=== PATIENT | male | born 1930 | race Caucasian/White ===

== ENCOUNTER 2017-08-20 17:54 | Emergency (ER) | payer MEDICARE, MEDICAID ==
[~2017-08-20] VITALS: Ht 170.2 cm; Wt 112.9 kg
--- NOTE | 2017-08-20 18:35 | NUR ---
Patient discharged to home in stable conditon. Written and verbal after care instructions given. Patient verbalizes understanding of instructions. Ambulated from ER. All belongings with patient. catheter repositioned per ER MD instruction, flowing without difficulty at this time.
[2017-08-20 18:36] VITALS: BP 118/78
== END 2017-08-20 18:38 | disposition home or self-care (01) ==
LOC: ER 17:58
DX: R33.9 Retention of urine, unspecified (principal); I11.0 Hypertensive heart disease with heart failure; I50.9 Heart failure, unspecified; Z95.0 Presence of cardiac pacemaker; Z91.010 Allergy to peanuts
CPT/HCPCS: A4663

== ENCOUNTER 2017-09-17 07:55 | Emergency (ER) | payer MEDICARE, MEDICAID ==
[~2017-09-17] VITALS: Ht 170.2 cm; Wt 108.9 kg
[2017-09-17] MEDS ORDERED: LIDOCAINE 2% (UROJET) 10 ML JELLY MM ONE ×2 (08:15→08:18)
--- NOTE | 2017-09-17 08:20 | NUR ---
Existing f/c d/c without complications, new f/c 16fr. inserted without any complications as ordered by Dr. Rocha.
--- NOTE | 2017-09-17 08:29 | NUR ---
1600ML OF BLOODY URINE WITH CLOTS OUT AFTER FOWLEY CATH REPLACEMENT. PT STAED HE FELT MUCH RELEIF.
[2017-09-17 08:32] LABS: *BILIRUBIN,URIN NEGATIVE (NEGATIVE); *BLOOD, URINE 3+ (NEGATIVE); *CLARITY,URINE CLEAR (CLEAR); *COLOR,URINE YELLOW (YELLOW); *KETONES,URINE NEGATIVE (NEGATIVE); *PROTEIN,URINE 2+ (NEGATIVE); *UROBILINOGEN,URINE 0.2 E.U./dl (NORMAL); LEUKOCYTE ESTERASE ,URINE 3+ (NEGATIVE); NITRITE, URINE NEGATIVE (NEGATIVE); PH,URINE 7.5 (5.0-8.0); UGLUCOSE NEGATIVE (NEGATIVE)
[2017-09-17 08:52] LABS: BACTERIA,URINE MODERATE /HPF (NONE SEEN); RBC,URINE TNTC /HPF (0-3); SQUAMOUS EPITHELIAL CELL,UR FEW /HPF (NONE SEEN); WBC,URINE 20-50 /HPF (0-3)
--- NOTE | 2017-09-17 08:54 | NUR ---
spoke with pt's urologist (on-call for ) via telephone.
[2017-09-17] MEDS ORDERED: LEVOFLOXACIN 500 MG TABLET PO ONE (09:15)
[2017-09-17] MEDS ORDERED: LEVOFLOXACIN 500 MG TABLET ONE (09:25)
--- NOTE | 2017-09-17 09:39 | NUR ---
BKLADDER WAS IRRAGATED WITH 0.9 NS IRRAGATION THROUGH JOSIE DAMON, CLEARED AFTER 1L IRRAGHATION, NO CLOTTS SEEN, LEG BAG PLCAED, PT REC'D LEVAQUIN PO, THEN D/C'D HOME, ACI/RX X1 GIVEN, PT AMBULATED WITH WALKER W/O PROBLEMS, PT'S SON PRESENT AND IS TO DRIVE. DR ROGERS SPOKE TO PT'S UROLOGIST AND SET UP AN APPT.
[2017-09-17 09:53] VITALS: BP 135/71
[2017-09-17] MEDS ORDERED: FURO-152 PO (18:11)
[2017-09-17] MEDS ORDERED: FOLI1TAB16 PO (18:11)
[2017-09-17] MEDS ORDERED: HYDR-4076 PO (18:11)
[2017-09-17] MEDS ORDERED: DOCU100C36 PO (18:11)
[2017-09-17] MEDS ORDERED: METO-357 PO (18:11)
[2017-09-17] MEDS ORDERED: LISI-603 PO (18:11)
[2017-09-17] MEDS ORDERED: IPRA3AMP23 IH (18:11)
[2017-09-17] MEDS ORDERED: RIVA10TA PO (18:11)
[2017-09-17] MEDS ORDERED: ATOR20TA PO (18:11)
[2017-09-17] MEDS ORDERED: PANT40TA4 PO (18:11)
[2017-09-17] MEDS ORDERED: COLC0.6C3 PO (18:11)
[2017-09-17] MEDS ORDERED: METF500T6 PO (18:11)
[2017-09-17] MEDS ORDERED: FLUT16SP NS (18:11)
[2017-09-17] MEDS ORDERED: ALLO100T PO (18:11)
[2017-09-17] MEDS ORDERED: DOXA4TAB3 PO (18:11)
[2017-09-17] MEDS ORDERED: POLY17PO4 PO (18:11)
[2017-09-17] MEDS ORDERED: ASPI81TA31 PO (18:11)
[2017-09-17] MEDS ORDERED: POTA10TA15 PO (18:11)
[2017-09-17] MEDS ORDERED: TAMS-3 PO (18:11)
[2017-09-17] MEDS ORDERED: FINA5TAB11 PO (18:11)
[2017-09-17] MEDS ORDERED: ACET-2154 PO (18:11)
[2017-09-17] MEDS ORDERED: CYAN10009 PO (18:11)
[2017-09-18] MEDS ORDERED: CYAN-10 IM (14:03)
== END 2017-09-17 09:54 | disposition home or self-care (01) ==
LOC: ER 07:55
DX: R33.9 Retention of urine, unspecified (principal); R31.9 Hematuria, unspecified; I11.0 Hypertensive heart disease with heart failure; I50.9 Heart failure, unspecified; Z95.0 Presence of cardiac pacemaker; Z91.010 Allergy to peanuts
CPT/HCPCS: 87077; 87086; A4217; A4663

== ENCOUNTER 2017-09-17 17:06 | Inpatient (IN) | payer MEDICARE, MEDICAID ==
[~2017-09-17] VITALS: Ht 170.2 cm; Wt 109.5 kg
--- NOTE | 2017-09-17 02:00 | NUR ---
Nursing Note: Pt appears to be restless. Note to have gila red blood in continuous irrigation. Attempted to flush Rios. Noted to get clogged once again. Pt urine noted with large clots throughout out. Pt noted with order for stat H and H. to infuse 1 unit packed rbc if hgb less than 8. Pt continues to have gila hematuria. Noted with complaints of bladder pain. Morphine administered as order and effective. Pt no longer restless. Pt removed cpap machine and now on O2 at 2lpm. Bed in low and locked position. Addendum: 09/18/17 at 0431 by HANNA FELTON RN Omitt note
[2017-09-17] MEDS ORDERED: IPRA3AMP23 IH (18:11)
[2017-09-17] MEDS ORDERED: METO-357 PO (18:11)
[2017-09-17] MEDS ORDERED: FINA5TAB11 PO (18:11)
[2017-09-17] MEDS ORDERED: METF500T6 PO (18:11)
[2017-09-17] MEDS ORDERED: ATOR20TA PO (18:11)
[2017-09-17] MEDS ORDERED: ACET-2154 PO (18:11)
[2017-09-17] MEDS ORDERED: DOXA4TAB3 PO (18:11)
[2017-09-17] MEDS ORDERED: FOLI1TAB16 PO (18:11)
[2017-09-17] MEDS ORDERED: FURO-152 PO (18:11)
[2017-09-17] MEDS ORDERED: CYAN10009 PO (18:11)
[2017-09-17] MEDS ORDERED: COLC0.6C3 PO (18:11)
[2017-09-17] MEDS ORDERED: FLUT16SP NS (18:11)
[2017-09-17] MEDS ORDERED: HYDR-4076 PO (18:11)
[2017-09-17] MEDS ORDERED: PANT40TA4 PO (18:11)
[2017-09-17] MEDS ORDERED: LISI-603 PO (18:11)
[2017-09-17] MEDS ORDERED: POLY17PO4 PO (18:11)
[2017-09-17] MEDS ORDERED: POTA10TA15 PO (18:11)
[2017-09-17] MEDS ORDERED: ASPI81TA31 PO (18:11)
[2017-09-17] MEDS ORDERED: TAMS-3 PO (18:11)
[2017-09-17] MEDS ORDERED: ALLO100T PO (18:11)
[2017-09-17] MEDS ORDERED: DOCU100C36 PO (18:11)
[2017-09-17] MEDS ORDERED: RIVA10TA PO (18:11)
[2017-09-17] MEDS ORDERED: LIDOCAINE 2% (UROJET) 10 ML JELLY MM ONE ×2 (18:15→18:25)
--- NOTE | 2017-09-17 18:27 | NUR ---
Call placed to Dr. Shelley (Patient's own UROLOGIST), message left for return call.
--- NOTE | 2017-09-17 18:31 | NUR ---
FAUSTO speaking with Dr. Cates.
--- NOTE | 2017-09-17 19:20 | NUR ---
iv placed, dr sanders oncall urologist was called at approx 1840, has not called back, 18f 3way fowley cath placed, 200ml of bloody urine and large clot out, bladder irragation in process. mrsa kaleb ordered and sent, sbar report to larisa griffin
--- NOTE | 2017-09-17 19:39 | NUR ---
Dr Rocha spoke with Dr Dewey for admission
--- NOTE | 2017-09-17 19:42 | NUR ---
Dr Rocha speaking with Dr Tejeda urology consult
[2017-09-17 20:00] VITALS: BP 143/75
[2017-09-17 20:04] LABS: BASOPHILS % (AUTO) 0.4 % (0.0-2.0); EOSINOPHILS # (AUTO) 0.1 K/uL (0.0-0.7); EOSINOPHILS % (AUTO) 1.5 % (0.0-7.0); HEMATOCRIT 25.2 % (36.7-47.1); LYMPHOCYTES # (AUTO) 0.8 K/uL (20.0-40.0); LYMPHOCYTES % (AUTO) 12.2 % (20.5-51.5); MEAN CORPUSCULAR HEMOGLOBIN 21.2 uug (23.8-33.4); MEAN CORPUSCULAR HGB CONC 32 g/dL (32.5-36.3); MEAN CORPUSCULAR VOLUME 67.1 fL (73.0-96.2); MONOCYTES # (AUTO) 0.5 K/uL (2.0-10.0); MONOCYTES % (AUTO) 7.5 % (0.0-11.0); NEUTROPHILS # (AUTO) 5.3 K/uL (1.8-8.9); NEUTROPHILS % (AUTO) 78.4 % (38.5-71.5); PLATELET COUNT (AUTO) 177 K/uL (152-348); RED BLOOD CELL COUNT(AUTO) 3.75 MIL/uL (4.06-5.63); WHITE BLOOD COUNT (AUTO) 6.8 K/uL (3.6-10.2)
[2017-09-17 20:09] LABS: CARBON DIOXIDE 33 mmol/L (21-32); CHLORIDE 105 mmol/L (98-107); CREATININE 1.6 mg/dL (0.6-1.3); GLUCOSE 99 mg/dL (74-106); POTASSIUM 3.6 mmol/L (3.5-5.1); UREA NITROGEN, BLOOD 19 mg/dL (7-18)
--- NOTE | 2017-09-17 20:11 | NUR ---
Transfered to 2nd floor via selina
[2017-09-17 20:53] LABS: BAND % (MANUAL) 3 % (0-10); EOSINOPHILS % (MANUAL) 1 % (0-8); LYMPHOCYTES % (MANUAL) 11 % (20-40); MONOCYTES % (MANUAL) 5 % (2-10); NEUTROPHILS % (MANUAL) 80 % (42-75)
--- NOTE | 2017-09-17 21:00 | NUR ---
Nursing Note: Pt appears to be in no distress at this time. Pt sitting in room with Son present. Explain reason for hospitalization to pt. Pt understood. Oriented pt to room. Call light in reach. Bed in low position. Bed in locked position. Frequent visual checks. Will continue to monitor. Addendum: 09/18/17 at 0435 by HANNA FELTON RN Omit note
[2017-09-17] MEDS ORDERED: ONDANSETRON 4 MG/2 ML VIAL IV PRN (21:15)
[2017-09-17] MEDS ORDERED: TEMAZEPAM 7.5 MG CAPSULE PO PRN (21:15)
[2017-09-17] MEDS: TAMSULOSIN HCL 0.4 MG CAP.SR.24H PO SCH (21:52)
[2017-09-17] MEDS: ATORVASTATIN 20 MG TABLET PO SCH (21:52)
[2017-09-17] MEDS: hydrALAZINE HCL 25 MG TABLET PO SCH (21:54)
[2017-09-17] MEDS ORDERED: diphenhydrAMINE 50 MG/1 ML VIAL IV ONE (23:00)
[2017-09-17] MEDS ORDERED: ACETAMINOPHEN 325 MG TABLET PO ONE (23:00)
--- NOTE | 2017-09-17 23:30 | NUR ---
PT PLACED ON CPAP OF 11, FIO2 30% PER NURSE AND PATIENT REQUEST. PT APPEARS TO BE COMFORTABLE AT THIS TIME. SAT 98%, HEART RATE 78. ALARMS CHECKED, ARE ON AND AUDIBLE. NO S/S OF RESPIRATORY DISTRESS NOTED. AMBU BAG IS AT BEDSIDE. WILL CONTINUE TO MONITOR.
[2017-09-18] VITALS (11 sets, daily range): BP systolic 117–147; BP diastolic 51–84
[2017-09-18 00:32] LABS: HEMATOCRIT 24.1 % (36.7-47.1); HEMOGLOBIN 7.7 g/dL (12.5-16.3)
[2017-09-18] MEDS: ACETAMINOPHEN 325 MG TABLET PO PRN ×2 (01:36→09:04)
[2017-09-18] MEDS: MORPHINE SULFATE 2 MG/1 ML DISP.SYRIN IV PRN ×2 (01:41→04:46)
--- NOTE | 2017-09-18 02:00 | NUR ---
Nursing Note: Pt appears to be restless. Note to have gila red blood in continuous irrigation. Attempted to flush Rios. Noted to get clogged once again. Pt urine noted with large clots throughout out. Pt noted with order for stat H and H. to infuse 1 unit packed rbc if hgb less than 8. Pt continues to have gila hematuria. Noted with complaints of bladder pain. Morphine administered as order and effective. Pt no longer restless. Pt removed cpap machine and now on O2 at 2lpm. Bed in low and locked position.
[2017-09-18] MEDS ORDERED: diphenhydrAMINE 50 MG/1 ML VIAL IV PRN (02:30)
[2017-09-18] MEDS ORDERED: CLONIDINE HCL 0.1 MG TABLET PO PRN (03:00)
--- NOTE | 2017-09-18 03:00 | NUR ---
Nursing Note: Large quantities of red urine removed with large clots. Pt noted to have stable VS now. Pt noted with No SOB on O2 at 2lpm. Urine draining well now. Bed in low position. Bed in locked position. Pt 18g IV site on R AC intact and patent. Frequent visual checks. Will continue to monitor.
--- NOTE | 2017-09-18 03:24 | NUR ---
Physical completed 09/18/17 at 0000. Noted as 09/17/17 in error Addendum: 09/18/17 at 0325 by HANNA FELTON RN Amended: Links added.
[2017-09-18] MEDS: hydrALAZINE HCL 25 MG TABLET PO SCH ×3 (05:11→22:00)
--- NOTE | 2017-09-18 07:15 | NUR ---
RECEIVED REPORT FROM SENIOR CREDIT OFFICER. AAOX3. SOB NOTED W/ EXERTION. ON CONTINUOUS BLADDER IRRIGATION, DRAINING HEMATURIA W/ CLOTS WELL TOLERATED. FC IN PLACE W/ URINE BA ATTACHED. TO BE SEEN BY UROLOGIST TODAY. IV ACCESS ON LEFT AC #28 AND L HAND #20 BOTH INTACT AND PATENT. NO COMPLAINTS OF PAIN AT THIS TIME. CALL LIGHT WITHIN REACH. WILL CONTINUE TO MONITOR CLOSELY.
[2017-09-18 08:06] LABS: BASOPHILS % (AUTO) 0.1 % (0.0-2.0); LYMPHOCYTES # (AUTO) 0.3 K/uL (20.0-40.0); LYMPHOCYTES % (AUTO) 3.1 % (20.5-51.5); MEAN CORPUSCULAR HEMOGLOBIN 21.8 uug (23.8-33.4); MEAN CORPUSCULAR HGB CONC 32 g/dL (32.5-36.3); MEAN CORPUSCULAR VOLUME 67.9 fL (73.0-96.2); MONOCYTES # (AUTO) 0.3 K/uL (2.0-10.0); MONOCYTES % (AUTO) 3.7 % (0.0-11.0); NEUTROPHILS # (AUTO) 7.8 K/uL (1.8-8.9); NEUTROPHILS % (AUTO) 93.1 % (38.5-71.5); PLATELET COUNT (AUTO) 170 K/uL (152-348); RED BLOOD CELL COUNT(AUTO) 4.19 MIL/uL (4.06-5.63); WHITE BLOOD COUNT (AUTO) 8.4 K/uL (3.6-10.2)
[2017-09-18 08:08] LABS: HEMATOCRIT 28.4 % (36.7-47.1); HEMOGLOBIN 9.1 g/dL (12.5-16.3)
[2017-09-18] MEDS: FOLIC ACID 1 MG TABLET PO SCH (08:20)
[2017-09-18] MEDS: MIRALAX 17 GM POWD.PACK PO SCH (08:20)
[2017-09-18 08:24] LABS: ALANINE AMINOTRANSFERASE 16 U/L (16-63); ALKALINE PHOSPHATASE 62 U/L (50-136); ASPARTATE AMINOTRANSFERASE 13 U/L (15-37); BILIRUBIN,TOTAL 1.1 mg/dL (0.2-1.0); CARBON DIOXIDE 29 mmol/L (21-32); CHLORIDE 102 mmol/L (98-107); CHOLESTEROL 118 mg/dL (<200); CREATININE 3.3 mg/dL (0.6-1.3); GLUCOSE 198 mg/dL (74-106); HDL CHOLESTEROL 69 mg/dL (40-60); IRON, SERUM 14 ug/dL (50-175); MAGNESIUM 2.1 mg/dL (1.8-2.4); PHOSPHOROUS 3.6 mg/dL (2.5-4.9); POTASSIUM 4.4 mmol/L (3.5-5.1); TOTAL PROTEIN, SERUM 6.8 g/dL (6.4-8.2); TRIGLYCERIDES 30 MG/DL (30-150); UREA NITROGEN, BLOOD 31 mg/dL (7-18)
[2017-09-18] MEDS: ALLOPURINOL 100 MG TABLET PO SCH (08:24)
[2017-09-18] MEDS: PANTOPRAZOLE SODIUM 40 MG TABLET.DR PO SCH (08:24)
[2017-09-18] MEDS: FUROSEMIDE 20 MG/2 ML VIAL IV SCH (08:24)
[2017-09-18] MEDS: METOPROLOL SUCCINATE XL 50 MG TAB.SR.24H PO SCH (08:24)
[2017-09-18] MEDS: FINASTERIDE 5 MG TABLET PO SCH (08:24)
[2017-09-18] MEDS: DOCUSATE SODIUM 100 MG CAPSULE PO SCH ×2 (08:25→16:38)
[2017-09-18 09:39] LABS: BAND % (MANUAL) 12 % (0-10); LYMPHOCYTES % (MANUAL) 2 % (20-40); MONOCYTES % (MANUAL) 5 % (2-10); NEUTROPHILS % (MANUAL) 81 % (42-75)
[2017-09-18 09:45] LABS: THYROID STIMULATING HORMONE 0.797 mIU/mL (0.358-3.740)
--- NOTE | 2017-09-18 10:00 | NUR ---
SEEN AND EXAMINED BY DR. BOWLING UROLOGIST. CHANGED FC AND IRRIGATED BLADDER MANUALLY. DISCONTINUED CBI. W/ NEW ORDERS NOTED AND CARRIED OUT.
[2017-09-18] MEDS: LEVOFLOXACIN 250MG /D5W 250 MG in PREMIXED 1 EACH IV SCH (10:37)
--- NOTE | 2017-09-18 11:00 | NUR ---
SEEN AND EXAMINED BY DR. LEW Richter/ NEW ORDERS NOTED AND CARRIED OUT.
[2017-09-18] MEDS ORDERED: HYDROCODONE/APAP 5-325MG TABLET PO PRN (11:30)
[2017-09-18] MEDS ORDERED: IV D5/ 0.9% NACL 1,000 ML IV PRN (12:00)
[2017-09-18] MEDS ORDERED: CYAN-10 IM (14:03)
[2017-09-18] MEDS ORDERED: CYANOCOBALAMIN 1000 MCG/ML VIAL IM SCH (14:30)
--- NOTE | 2017-09-18 15:30 | NUR ---
SEEN AND EXAMINED BY DR. GUTIERREZ, W/ ORDERS NOTED AND CARRIED OUT
[2017-09-18] MEDS: TAMSULOSIN HCL 0.4 MG CAP.SR.24H PO SCH (20:12)
[2017-09-18] MEDS: ATORVASTATIN 20 MG TABLET PO SCH (20:12)
--- NOTE | 2017-09-18 20:43 | NUR ---
Nursing Note: Pt resting in bed. On O2 at 2lpm with no SOB at this time. All due medications administered as ordered. Pt xiao catheter draining yellow and cranberry color. Check for patency Pt VS BP117/57 HR71 R18 T98.3 O2 98%. No complaints of pain at this time. Abdomen soft and non distended. Bladder does not appear to be distended upon palpation. 2 side rails up. Bed alarm engaged. Bed in low position. Bed locked. Call light in reach. Frequent visual checks. Will continue to monitor.
[2017-09-19] VITALS (11 sets, daily range): BP systolic 102–131; BP diastolic 44–77
--- NOTE | 2017-09-19 00:53 | NUR ---
Nursing Note: Pt Xiao catheter draining yellowish urine with streaks of blood, 500 cc removed at midnight. No SOB at this time on O2 at 2lpm via nasal cannula. No complaints of abdominal pain or bladder pain at this time. Frequent visual checks. Pt xiao flushed 3 times thus far. Bed in low and locked position. Bed alarm engaged. Call light in reach. Will continue to monitor.
[2017-09-19] MEDS: hydrALAZINE HCL 25 MG TABLET PO SCH ×3 (05:02→22:00)
[2017-09-19 06:57] LABS: ALANINE AMINOTRANSFERASE 13 U/L (16-63); ALKALINE PHOSPHATASE 44 U/L (50-136); ASPARTATE AMINOTRANSFERASE 9 U/L (15-37); BILIRUBIN,TOTAL 0.8 mg/dL (0.2-1.0); CARBON DIOXIDE 33 mmol/L (21-32); CHLORIDE 106 mmol/L (98-107); CREATININE 2.3 mg/dL (0.6-1.3); EOSINOPHILS % (AUTO) 0.1 % (0.0-7.0); GLUCOSE 130 mg/dL (74-106); LYMPHOCYTES # (AUTO) 0.5 K/uL (20.0-40.0); LYMPHOCYTES % (AUTO) 5.4 % (20.5-51.5); MAGNESIUM 2.2 mg/dL (1.8-2.4); MEAN CORPUSCULAR HEMOGLOBIN 21.4 uug (23.8-33.4); MEAN CORPUSCULAR HGB CONC 32 g/dL (32.5-36.3); MEAN CORPUSCULAR VOLUME 67.4 fL (73.0-96.2); MONOCYTES # (AUTO) 0.7 K/uL (2.0-10.0); MONOCYTES % (AUTO) 7.5 % (0.0-11.0); NEUTROPHILS # (AUTO) 8.1 K/uL (1.8-8.9); PHOSPHOROUS 4.3 mg/dL (2.5-4.9); PLATELET COUNT (AUTO) 160 K/uL (152-348); POTASSIUM 4.2 mmol/L (3.5-5.1); RED BLOOD CELL COUNT(AUTO) 3.64 MIL/uL (4.06-5.63); TOTAL PROTEIN, SERUM 5.8 g/dL (6.4-8.2); UREA NITROGEN, BLOOD 36 mg/dL (7-18); WHITE BLOOD COUNT (AUTO) 9.3 K/uL (3.6-10.2)
[2017-09-19 06:59] LABS: HEMATOCRIT 24.5 % (36.7-47.1); HEMOGLOBIN 7.8 g/dL (12.5-16.3)
--- NOTE | 2017-09-19 07:20 | NUR ---
Nursing Note: Pt resting in bed with no SOB noted. Pt xiao continues to be draining cranberry colored urine. Pt has no complaints of pain at this time. Bed in low and locked position. Call light in reach. Pt Lab results showed Hgb of 7.8. AM nurse aware to follow up.
--- NOTE | 2017-09-19 07:25 | NUR ---
RECEIVED PATIENT IN BED ASLEEP WITH O2 AT THIS TIME WITH NO SHORTNESS OF BREATH PER THE NOC RN PATIENT DID NOT WANT TO USE HIS C PAP LAST NITE SEEMS COMFORTABLE WITH HIS LACEY WITH PINK COLORED URINE WILL CONTINUE TO IRRIGATE ORDERED.
--- NOTE | 2017-09-19 08:25 | NUR ---
LACEY CATHETER HAND IRRIGATED WITH 100 ML OF SALINE TOLERATED WELL WITH LIGHT PINKISH RETURN AT THIS TIME.
[2017-09-19] MEDS: FUROSEMIDE 20 MG/2 ML VIAL IV SCH (09:00)
[2017-09-19] MEDS: FINASTERIDE 5 MG TABLET PO SCH (09:01)
[2017-09-19] MEDS: MIRALAX 17 GM POWD.PACK PO SCH (09:01)
[2017-09-19] MEDS: FOLIC ACID 1 MG TABLET PO SCH (09:01)
[2017-09-19] MEDS: PANTOPRAZOLE SODIUM 40 MG TABLET.DR PO SCH (09:01)
[2017-09-19] MEDS: ALLOPURINOL 100 MG TABLET PO SCH (09:01)
[2017-09-19] MEDS: DOCUSATE SODIUM 100 MG CAPSULE PO SCH ×2 (09:01→16:34)
[2017-09-19] MEDS: METOPROLOL SUCCINATE XL 50 MG TAB.SR.24H PO SCH (09:06)
[2017-09-19] MEDS: LEVOFLOXACIN 250MG /D5W 250 MG in PREMIXED 1 EACH IV SCH (09:33)
[2017-09-19 10:01] LABS: BAND % (MANUAL) 3 % (0-10); LYMPHOCYTES % (MANUAL) 3 % (20-40); MONOCYTES % (MANUAL) 5 % (2-10); NEUTROPHILS % (MANUAL) 89 % (42-75)
[2017-09-19] MEDS ORDERED: FUROSEMIDE 20 MG/2 ML VIAL IV PRN (10:15)
--- NOTE | 2017-09-19 11:37 | NUR ---
LACEY CONTINUED TO BE IRRIGATED ORDERED WITH PINK URINE OUTPUT WITH NO BLOOD CLOTS AT THIS TIME.NEW ORDERS RECEIVED FROM DR POLLOCK AND CARRIES OUT.PATIENTS DAUGHTER MICAH HERE AND AWARE THAT PATIENT NEEDS BLOOD TRANSFUSSION
[2017-09-19 12:23] LABS: *BILIRUBIN,URIN NEGATIVE (NEGATIVE); *BLOOD, URINE 3+ (NEGATIVE); *CLARITY,URINE CLOUDY (CLEAR); *COLOR,URINE RED (YELLOW); *KETONES,URINE NEGATIVE (NEGATIVE); *PROTEIN,URINE 1+ (NEGATIVE); *UROBILINOGEN,URINE 0.2 E.U./dl (NORMAL); LEUKOCYTE ESTERASE ,URINE TRACE (NEGATIVE); NITRITE, URINE NEGATIVE (NEGATIVE); UGLUCOSE NEGATIVE (NEGATIVE)
[2017-09-19 12:32] LABS: RBC,URINE TNTC /HPF (0-3)
[2017-09-19 12:34] LABS: BACTERIA,URINE NONE SEEN /HPF (NONE SEEN)
[2017-09-19 12:35] LABS: MUCUS,URINE FEW /LPF (0-FEW); SQUAMOUS EPITHELIAL CELL,UR FEW /HPF (NONE SEEN)
--- NOTE | 2017-09-19 15:00 | NUR ---
BLOOD TRANSFUSSION STARTED ORDERED.
--- NOTE | 2017-09-19 16:30 | NUR ---
TEMP IS 99.6 DR POLLOCK NOTIFIED AND HE STATED TO CONTINUE THE BLOOD TRANSFUSSION ORDERED AND CONTINUE TO OBSERVE PATIENT.
--- NOTE | 2017-09-19 18:15 | NUR ---
BLOOD TRANSFUSSION COMPLETED ORDERED AND LASIX POST ORDERED TOLERATED FAIR CONTINUES TO HAVE LOW GRADE TEMP WILL CONTINUE TO OBSERVE.
[2017-09-19] MEDS: IPRATROPIUM BROMIDE 0.5 MG/2.5 ML NEBU NEB PRN (19:31)
[2017-09-19] MEDS: ALBUTEROL SULFATE 2.5 MG/3 ML NEBU NEB PRN (19:31)
[2017-09-19] MEDS: TAMSULOSIN HCL 0.4 MG CAP.SR.24H PO SCH (20:18)
[2017-09-19] MEDS: ATORVASTATIN 20 MG TABLET PO SCH (20:18)
--- NOTE | 2017-09-19 21:48 | NUR ---
Nursing Note: Nursing Note: Pt resting in bed. On CPAP machine now and tolerating well. All due medications administered as ordered. Pt xiao catheter draining yellow urine now with no streaks of blood. Check for patency Pt VS BP114/44 HR76 R20 T99.3 O2 96%. No complaints of pain at this time. Abdomen soft and non distended.Pt in bed with 2 side rails up. Bed alarm engaged. Bed in low position. Bed locked. Call light in reach. Frequent visual checks. Will continue to monitor.
--- NOTE | 2017-09-20 00:33 | NUR ---
Nursing Note: Pt assisted to bedside commode. Noted to have BM. Stool sent to lab for OB. Pt currently on CPAP machine. No distress noted at this time. Urine clear and yellow draining from xiao with no blood seen in tubing. Bed in low and locked position. Bed alarm engaged. Frequent visual checks Call light in reach.
--- NOTE | 2017-09-20 03:27 | NUR ---
Nursing Note: Pt resting comfortably. Continues to remain on CPAP. No SOB noted. Pt appears asleep. Rios catheter draining clear yellow urine with minimal blood. No complaints of pain at this time. Bed in low position. Bed in locked position. Call light in reach. Frequent visual checks done.
[2017-09-20 05:09] LABS: *OCCULT BLOOD STOOL NEGATIVE (NEGATIVE)
[2017-09-20 05:17] VITALS: BP 136/64
[2017-09-20 06:10] LABS: BASOPHILS % (AUTO) 0.1 % (0.0-2.0); EOSINOPHILS % (AUTO) 0.5 % (0.0-7.0); HEMATOCRIT 26.5 % (36.7-47.1); HEMOGLOBIN 8.4 g/dL (12.5-16.3); LYMPHOCYTES # (AUTO) 1.1 K/uL (20.0-40.0); LYMPHOCYTES % (AUTO) 13.9 % (20.5-51.5); MEAN CORPUSCULAR HEMOGLOBIN 22.2 uug (23.8-33.4); MEAN CORPUSCULAR HGB CONC 32 g/dL (32.5-36.3); MEAN CORPUSCULAR VOLUME 69.7 fL (73.0-96.2); MONOCYTES # (AUTO) 0.5 K/uL (2.0-10.0); MONOCYTES % (AUTO) 6.7 % (0.0-11.0); NEUTROPHILS # (AUTO) 6.5 K/uL (1.8-8.9); NEUTROPHILS % (AUTO) 78.8 % (38.5-71.5); PLATELET COUNT (AUTO) 153 K/uL (152-348); WHITE BLOOD COUNT (AUTO) 8.2 K/uL (3.6-10.2)
[2017-09-20] MEDS: hydrALAZINE HCL 25 MG TABLET PO SCH ×3 (06:13→21:05)
[2017-09-20 06:21] LABS: ABG BASE EXCESS 6.8 mmol/L; ABG HCO3 33.2 mmol/L; ABG PCO2 59.7 mmHg (35.0-45.0); ABG PH 7.363 (7.350-7.450); ABG PO2 76.8 mmHg (75.0-100.0); ABG SITE RIGHT RADIAL; ABG TOTAL HEMOGLOBIN 8.2 G/dL (13.5-18.0); COHb 2.7 % (0.5-1.5); MetHb 0.3 % (0.0-1.5); O2Hb 92.5 % (94.0-97.0); VENT MODE CPAP 11
[2017-09-20 06:25] LABS: ALANINE AMINOTRANSFERASE 14 U/L (16-63); ALKALINE PHOSPHATASE 47 U/L (50-136); ASPARTATE AMINOTRANSFERASE 10 U/L (15-37); BILIRUBIN,TOTAL 0.8 mg/dL (0.2-1.0); CARBON DIOXIDE 35 mmol/L (21-32); CHLORIDE 106 mmol/L (98-107); GLUCOSE 121 mg/dL (74-106); MAGNESIUM 2.4 mg/dL (1.8-2.4); PHOSPHOROUS 3.5 mg/dL (2.5-4.9); POTASSIUM 3.8 mmol/L (3.5-5.1); TOTAL PROTEIN, SERUM 5.9 g/dL (6.4-8.2); UREA NITROGEN, BLOOD 40 mg/dL (7-18)
--- NOTE | 2017-09-20 08:30 | NUR ---
AWAKE ALERT AND ORIENTED BUT SOMETIMES FORGETFUL TENDS TO ASK SAME QUESTIONS DENIES DISCOMFORTS AT THIS TIME WAS ON C PAP AT THE BEGINNING OF THE SHIFT BUT IS NOW CONVERTED TO THE NASAL CANULA WITH NO SHORTNESS OF BREATH AT THIS TIME.INDWELLING LACEY CATHETER IS INTACT WITH LIGHT CHULA COLORED URINE NO HEMATURIA OR CLOTS AT THIS TIME.PATIENT IS TOTALLY DEPENDENT FOR ALL ADL MADE COMFORTABLE WILL CONTINUE TO OBSERVE.
[2017-09-20] MEDS: ALLOPURINOL 100 MG TABLET PO SCH (08:50)
[2017-09-20] MEDS: FOLIC ACID 1 MG TABLET PO SCH (08:50)
[2017-09-20] MEDS: DOCUSATE SODIUM 100 MG CAPSULE PO SCH ×2 (08:50→16:28)
[2017-09-20] MEDS: MIRALAX 17 GM POWD.PACK PO SCH (08:50)
[2017-09-20] MEDS: FINASTERIDE 5 MG TABLET PO SCH (08:50)
[2017-09-20] MEDS: PANTOPRAZOLE SODIUM 40 MG TABLET.DR PO SCH (08:50)
[2017-09-20] MEDS: METOPROLOL SUCCINATE XL 50 MG TAB.SR.24H PO SCH (08:51)
[2017-09-20] MEDS: FUROSEMIDE 20 MG/2 ML VIAL IV SCH (08:51)
[2017-09-20] MEDS: LEVOFLOXACIN 250MG /D5W 250 MG in PREMIXED 1 EACH IV SCH (10:14)
--- NOTE | 2017-09-20 11:00 | NUR ---
AMBULATED WITH THE PHYSICAL THERAPY WITH THE FRONT WHEEL WALKER AROUND THE STATION AND TOLERATED WELL WITH FAIR ENDURANCE AT THIS TIME.TOLERATED IV ANTIBIOTICS ORDERED WITH NO ADVERSE OR ALLERGIC REACTIONS AT THIS TIME.
[2017-09-20 11:50] VITALS: BP 125/58
[2017-09-20] MEDS: IPRATROPIUM BROMIDE 0.5 MG/2.5 ML NEBU NEB PRN (13:29)
[2017-09-20] MEDS: ALBUTEROL SULFATE 2.5 MG/3 ML NEBU NEB PRN (13:29)
--- NOTE | 2017-09-20 13:31 | NUR ---
DR JUAREZ HERE TO SEE PATIENT WITH NEW ORDERS AND NOTED.
--- NOTE | 2017-09-20 14:46 | NUR ---
PATIENT HAS A DISCHARGE ORDER TO [facility] TODAY THE MEDICAL CLERK SPOKE WITH PATIENTS DAUGHTER MICAH AND SHE STATED THAT SHE HAS TO TALK TO THE DOCTOR FIRST BEFORE PATIENT CAN BE DISCHARGED AWAITING FOR PATIENTS DAUGHTER TO APPROVE FOR PATIENT TO BE MOVED TODAY.
[2017-09-20 15:50] VITALS: BP 121/54
--- NOTE | 2017-09-20 16:00 | NUR ---
CALLED AND SPOKE WITH PATIENTS DAUGHTER MICAH TO FIND OUT IF SHE SPOKE WITH DR BLAKELY RE DISCHARGE TODAY SHE STATED THAT DR VEGA WAS NOT ABLE TO GIVE ADEQUATE INFORMATION CITING THAT HE DOES NOT HAVE AVAILABLE COMPUTER AT THIS TIME PATIENTS DAUGHTER MICAH STATED DOES NOT WANT HER FATHER MOVED UNTIL SHE CAN TALK TO A DOCTOR AND GET MORE INFORMATION STATED WILL BE HERE TOMORROW MORNING TO TALK TO DR VEGA.MESSAGE SENT TO DR VEGA AND HE STATED OKAY WILL TALK TO HER TOMORROW.
--- NOTE | 2017-09-20 20:13 | NUR ---
RECEIVED SHIFT REPORT FROM DARIO SILVA. PT IN BED, DENIES PAIN, C/P, SOB, N/V. LACEY CATH DRAINING WELL. BED IN LOW AND LOCKED POSITION WITH UPPER BILATERAL SIDERAILS UP. CALL LIGHT WITHIN REACH. PT'S FAMILY AT BEDSIDE. 18 G IN R AC SALINE LOCKED. 20 G IN R HAND SALINE LOCKED.
[2017-09-20 20:38] VITALS: BP 123/50
[2017-09-20] MEDS: TAMSULOSIN HCL 0.4 MG CAP.SR.24H PO SCH (21:04)
[2017-09-20] MEDS: ATORVASTATIN 20 MG TABLET PO SCH (21:04)
--- NOTE | 2017-09-21 | NUR ---
PT SLEEPING IN BED WITH CPAP ON. DOES NOT APPEAR TO BE IN DISTRESS. LACEY CATH DRAINING ADEQUATELY. 20G IV ACCESS IN R HAND WAS REMOVED DUE TO LEAKING. 18 G IN R AC INTACT AND PATENT, FLUSHING WELL, SALINE LOCKED. PT REQUESTS TO MINIMIZE ROOM VISITS BY HOSPITAL STAFF THROUGHOUT THE NIGHT SO THAT HE CAN GET ADEQUATE REST. WILL REDUCE ROOM VISITS TO ALLOW FOR REST.
--- NOTE | 2017-09-21 02:48 | NUR ---
PT SLEEPING IN BED WITH CPAP ON. DOES NOT APPEAR TO BE IN DISTRESS. WILL CONTINUE TO MONITOR.
--- NOTE | 2017-09-21 03:58 | NUR ---
PT PLACED ON CPAP MACHINE WITH FULL MASK, CPAP 11, 30%, WEARING MASK MOST OF THE SHIFT, DOES BREATH SLOW VT AT TIMES, WHEN DEEP ASLEEP . Duong JOHNSONP Addendum: 09/21/17 at 0400 by KARINA JONES RT Amended: Links added.
[2017-09-21] MEDS: hydrALAZINE HCL 25 MG TABLET PO SCH ×2 (05:28→13:02)
[2017-09-21 05:34] VITALS: BP 152/73
[2017-09-21] MEDS: METOPROLOL SUCCINATE XL 50 MG TAB.SR.24H PO SCH (08:14)
[2017-09-21] MEDS: FUROSEMIDE 20 MG/2 ML VIAL IV SCH (08:14)
[2017-09-21] MEDS: FINASTERIDE 5 MG TABLET PO SCH (08:15)
[2017-09-21] MEDS: FOLIC ACID 1 MG TABLET PO SCH (08:15)
[2017-09-21] MEDS: PANTOPRAZOLE SODIUM 40 MG TABLET.DR PO SCH (08:15)
[2017-09-21] MEDS: ALLOPURINOL 100 MG TABLET PO SCH (08:15)
[2017-09-21] MEDS: DOCUSATE SODIUM 100 MG CAPSULE PO SCH ×3 (08:16→16:43)
[2017-09-21] MEDS: MIRALAX 17 GM POWD.PACK PO SCH ×2 (08:16→10:38)
--- NOTE | 2017-09-21 10:33 | NUR ---
Patient changed his mind and requests for stool softener. Patient refused stool softener earlier, medication scheduled at 0900.
[2017-09-21] MEDS: LEVOFLOXACIN 250MG /D5W 250 MG in PREMIXED 1 EACH IV SCH (10:39)
[2017-09-21 11:47] VITALS: BP 120/65
[2017-09-21 16:00] VITALS: BP 134/67
--- NOTE | 2017-09-21 17:10 | NUR ---
PATIENT DISCHARGED TO ARU. DISCHARGED PAPERS/INSTRUCTIONS/TEACHINGS PROVIDED TO SON/PATIENT, SON/PATIENT VERBALIZED UNDERSTANDING. PT HAS NO IV ACCESS, NO IV MEDICATIONS. PT HAS A LACEY CATH, INTACT/PATENT, DRAINING YELLOW URINE, NO HEMATURIA NOTED. VS STABLE, AFEBRILE. AWAITING FOR BED AT ARU.
--- NOTE | 2017-09-21 18:42 | NUR ---
WILL ENDORSE/REPORT TO RUST FISH TENDER RN.
--- NOTE | 2017-09-21 19:30 | NUR ---
PT D/C TO ARU VIA W/C, ESCORTED BY LESLI GARCIA RN. ALL BELONGINGS TAKEN BY FAMILY MEMBER.
[2017-09-22] MEDS ORDERED: FUROSEMIDE 20 MG TABLET PO SCH (09:00)
[2017-09-22] MEDS ORDERED: LEVOFLOXACIN 250 MG TABLET PO SCH (10:00)
== END 2017-09-21 20:01 | DRG 871 ==
LOC: ER 17:08 → MED 20:00 → TELE 21:00 → MED 09-18 15:00
PROVIDERS: ADMIT Internal Medicine; ATTEND Internal Medicine
PROC: 5A09357 Assistance with Respiratory Ventilation, Less than 24 Consecutive Hours, Continuous Positive Airway Pressure (ICD-10-PCS; 2017-09-17)
PROC: 30233N1 Transfusion of Nonautologous Red Blood Cells into Peripheral Vein, Percutaneous Approach (ICD-10-PCS; principal; 2017-09-18)
PROC: 0T2BX0Z Change Drainage Device in Bladder, External Approach (ICD-10-PCS; 2017-09-18)
PROC: 3C1ZX8Z Irrigation of Indwelling Device using Irrigating Substance, External Approach (ICD-10-PCS; 2017-09-18)
DX: A41.9 Sepsis, unspecified organism (principal); G93.40 Encephalopathy, unspecified; I50.33 Acute on chronic diastolic (congestive) heart failure; N17.0 Acute kidney failure with tubular necrosis; J69.0 Pneumonitis due to inhalation of food and vomit; N39.0 Urinary tract infection, site not specified; N13.8 Other obstructive and reflux uropathy; I13.0 Hypertensive heart and chronic kidney disease with heart failure and stage 1 through stage 4 chronic kidney disease, or unspecified chronic kidney disease; K92.1 Melena; N40.1 Benign prostatic hyperplasia with lower urinary tract symptoms; R33.8 Other retention of urine; R31.0 Gross hematuria; E66.01 Morbid (severe) obesity due to excess calories; Z68.37 Body mass index [BMI] 37.0-37.9, adult; Z96.651 Presence of right artificial knee joint; Z87.01 Personal history of pneumonia (recurrent); Z79.01 Long term (current) use of anticoagulants; Z79.84 Long term (current) use of oral hypoglycemic drugs; Z95.0 Presence of cardiac pacemaker; M19.90 Unspecified osteoarthritis, unspecified site; N32.89 Other specified disorders of bladder; I48.0 Paroxysmal atrial fibrillation; Z91.010 Allergy to peanuts; G47.33 Obstructive sleep apnea (adult) (pediatric); D50.0 Iron deficiency anemia secondary to blood loss (chronic); Z85.038 Personal history of other malignant neoplasm of large intestine; E11.22 Type 2 diabetes mellitus with diabetic chronic kidney disease; N18.9 Chronic kidney disease, unspecified; Z74.09 Other reduced mobility; D56.3 Thalassemia minor; Z90.49 Acquired absence of other specified parts of digestive tract; Z98.42 Cataract extraction status, left eye; I77.819 Aortic ectasia, unspecified site; I25.10 Atherosclerotic heart disease of native coronary artery without angina pectoris
CPT/HCPCS: 36415; 36600; 70030-TC; 71045; 76770; 82378; 83550; 83735; 84100; 84153; 84443; 85018; 85025; 85730; 86850; 86900; 86901; 86920; 87086; 93005; 93307; 94640; 94660; 94664; 97116; 97530; A4217; A4663; J1200; J1940; J1956; J2270; J2405; J3420; J3590; J7030; J7040; J7042; J7050; J8499; P9016-BL; P9021

== ENCOUNTER 2017-09-21 18:56 | Inpatient (IN) | payer MEDICARE, MEDICAID ==
[~2017-09-21] VITALS: Ht 170.2 cm; Wt 109.3 kg
[~2017-09-21 18:56] MED LIST: ACET-2154 PO; ASPI81TA31 PO; ATOR20TA PO; COLC0.6C3 PO; CYAN-10 IM; DOCU100C36 PO; DOXA4TAB3 PO; FINA5TAB11 PO; FLUT16SP NS; FOLI1TAB16 PO; FURO-152 PO; HYDR-4076 PO; IPRA3AMP23 IH; METO-357 PO; PANT40TA4 PO; POLY17PO4 PO; TAMS-3 PO
--- NOTE | 2017-09-21 19:45 | NUR ---
Received patient from [facility] floor via wheelchair. Family by bedside. A/O x 4. Evidence of SOB with exertion. Vital signs taken, stable. Placed O2 2L NC. Noted pacemaker on the upper left chest wall. Skin intact. Ambulatory with assist and FWW. Noted bilateral lower and upper extremities 2+ pitting edema. Rios cath draining yellow clear urine. Weight checked. Bed in low and locked position. Safety initiated. Call light within reach. Will closely monitor.
[2017-09-21 20:00] VITALS: BP 119/59
[2017-09-21] MEDS ORDERED: Z GUARD REMEDY PASTE 57 GM TUBE TOP PRN (20:15)
--- NOTE | 2017-09-21 21:32 | NUR ---
PLACED PATIENT ON CPAP @ 2128 PER ORDERS AND PATIENTS REQUEST. NO SOB NOTED AT THIS TIME. PATIENT'S SETTINGS ARE CPAP 11 AND 30% FIO2. PROTECTA GEL IS IN PLACE TO PROTECT SKIN. RN LIDIA IS AWARE. SPO2 98%.
--- NOTE | 2017-09-21 23:30 | NUR ---
RT placed patient on CPAP machine. Will continue to monitor.
[2017-09-21] MEDS ORDERED: ACETAMINOPHEN 325 MG TABLET PO PRN (23:45)
[2017-09-22] MEDS ORDERED: IPRATROPIUM BROMIDE 0.5 MG/2.5 ML NEBU NEB PRN
[2017-09-22] MEDS ORDERED: ALBUTEROL SULFATE 2.5 MG/3 ML NEBU NEB PRN
--- NOTE | 2017-09-22 02:45 | NUR ---
Patient in toilet, liquid stool present. Patient request to remove CPAP. Informed RT. Will place him on O2 2L NC once he is in bed.
--- NOTE | 2017-09-22 05:40 | NUR ---
Patient slept t/o shift. No acute distress noted. Remains A/O x 3. Patient is on O2 2L NC. Vital signs stable. Rios draining clear yellow urine. Room kept clutter free. Bed in low and locked position. All meds given as ordered. All needs met. Safety and comfort measures maintained t/o shift.
[2017-09-22] MEDS: PANTOPRAZOLE SODIUM 40 MG TABLET.DR PO SCH (06:34)
[2017-09-22] MEDS: hydrALAZINE HCL 25 MG TABLET PO SCH ×3 (06:35→21:20)
[2017-09-22] MEDS ORDERED: FLUTICASONE PROP NASAL SPRAY 16 GM BOTTLE NS SCH (09:00)
[2017-09-22] MEDS: FLUTICASONE PROP NASAL SPRAY 16 GM BOTTLE NS SCH ×2 (09:00→17:35)
[2017-09-22] MEDS: DOXAZOSIN 2 MG TABLET PO SCH (09:55)
[2017-09-22] MEDS: METOPROLOL SUCCINATE XL 50 MG TAB.SR.24H PO SCH (09:56)
[2017-09-22] MEDS: COLCHICINE 0.6 MG TABLET PO SCH (09:56)
[2017-09-22] MEDS: FINASTERIDE 5 MG TABLET PO SCH (09:56)
[2017-09-22] MEDS: FUROSEMIDE 20 MG TABLET PO SCH ×2 (09:56→17:35)
[2017-09-22] MEDS: ASPIRIN 81 MG TAB.CHEW PO SCH (09:56)
[2017-09-22] MEDS: MIRALAX 17 GM POWD.PACK PO SCH (09:57)
[2017-09-22] MEDS: DOCUSATE SODIUM 100 MG CAPSULE PO SCH ×2 (09:57→17:35)
[2017-09-22] MEDS: FOLIC ACID 1 MG TABLET PO SCH (09:57)
--- NOTE | 2017-09-22 11:10 | NUR ---
Received an order from Dr. John Delarosa to start on lactulose 20gm=30ml Q 6hrs until with BM.
[2017-09-22] MEDS: LACTULOSE 20 G/30 ML LIQUID UDC PO SCH ×3 (12:45→23:40)
[2017-09-22 15:26] VITALS: BP 135/54
[2017-09-22] MEDS ORDERED: BISACODYL 5 MG TABLET.DR PO ONE (18:30)
--- NOTE | 2017-09-22 19:50 | NUR ---
Received pt in bed, AAO x 4 watching television. No acute distress noted. Verbally responsive and able to make needs known. Denies pain or discomfort at this time. All safety measures and fall precautions maintained. Call light and all personal belongings within reach. Will continue to monitor.
[2017-09-22 20:18] VITALS: BP 135/73
[2017-09-22] MEDS: ATORVASTATIN 20 MG TABLET PO SCH (21:20)
[2017-09-22] MEDS: TAMSULOSIN HCL 0.4 MG CAP.SR.24H PO SCH (21:21)
--- NOTE | 2017-09-23 | NUR ---
Patient refused Lactulose after stating he had 3 small BM since 2099. Offered x 3. Explained risks and benefits. Safety maintained. Call light within reach. Will continue to monitor.
--- NOTE | 2017-09-23 01:55 | NUR ---
Pt requesting to have CPAP removed, complaining that it is too noisy. RT called and removed CPAP. Pt placed on 2LPM NC. Tolerating well. Will continue to monitor. Safety maintained. Call light within reach.
--- NOTE | 2017-09-23 01:58 | NUR ---
Pt removed from CPAP and placed on 2LNC after using restroom.
[2017-09-23 05:00] VITALS: BP 135/62
[2017-09-23] MEDS: LACTULOSE 20 G/30 ML LIQUID UDC PO SCH ×4 (06:00→23:59)
[2017-09-23] MEDS: hydrALAZINE HCL 25 MG TABLET PO SCH ×3 (06:06→21:05)
[2017-09-23] MEDS: PANTOPRAZOLE SODIUM 40 MG TABLET.DR PO SCH (06:30)
[2017-09-23 07:59] VITALS: BP 149/63
[2017-09-23] MEDS: DOCUSATE SODIUM 100 MG CAPSULE PO SCH ×2 (08:03→17:07)
[2017-09-23] MEDS: FOLIC ACID 1 MG TABLET PO SCH (08:03)
[2017-09-23] MEDS: ASPIRIN 81 MG TAB.CHEW PO SCH (08:03)
[2017-09-23] MEDS: FUROSEMIDE 20 MG TABLET PO SCH ×2 (08:04→17:07)
[2017-09-23] MEDS: METOPROLOL SUCCINATE XL 50 MG TAB.SR.24H PO SCH (08:04)
[2017-09-23] MEDS: COLCHICINE 0.6 MG TABLET PO SCH (08:04)
[2017-09-23] MEDS: FINASTERIDE 5 MG TABLET PO SCH (08:05)
[2017-09-23] MEDS: DOXAZOSIN 2 MG TABLET PO SCH (08:05)
[2017-09-23] MEDS: MIRALAX 17 GM POWD.PACK PO SCH (08:05)
[2017-09-23] MEDS: FLUTICASONE PROP NASAL SPRAY 16 GM BOTTLE NS SCH ×2 (08:06→17:11)
--- NOTE | 2017-09-23 13:40 | NUR ---
INTERDISCIPLINARY TEAM CONFERENCE
[2017-09-23] MEDS ORDERED: BISACODYL 10 MG SUPP.RECT RC ONE (14:00)
[2017-09-23 16:06] VITALS: BP 143/75
--- NOTE | 2017-09-23 19:37 | NUR ---
pt continues to have hematuria. md notified. ordered cbc. pt returned with hematuria from appointment. no clots noted during shift. family is concerned. awaiting new orders.
--- NOTE | 2017-09-23 19:47 | NUR ---
explained to family that patient needs cbc. family agreed with plan of care. however pt showed concern and wanted to have xiao changed because pt family is scared that blood clot might happen. notified lift mechanic and splicing machine operator. splicing machine operator ordered cbc. notified lift mechanic. no response.
--- NOTE | 2017-09-23 20:00 | NUR ---
Received pt. in bed resting, alert, awake, oriented x 4, with a family member @ the bedside. Pt. in Room Air, no s/s of sob, denies chest pain and denies pain @ this time. Pt. verbalized that he had blood or old and new red-marroon serosanguineous urinary output late afternoon today after he went for his PT- Physical Therapist and talked to his Doctor. According to the Day RN, Pt. went to his PT and was picked-up and travelling by an Ambulance. Pt. F/C was tugged alot of times or pulled-out so many times during the transfer and travelling by Ambulance, his F/C and the constant tugging of his F/C, irritated his urinary tract inside that cause to have bleeding and with red-marroon serosanguineous output goes with the urine. The day shift RN notified that the F/c drainage bag was changed to a leg bag so that it will not be tugged again. Family member @ the bedside ask alot of questions about the bleeding there and notified/informed/provided family member health teaching about monitoring pt. H/H result in Am, v/s, and and intake and output of pt. during the shift.
[2017-09-23 20:04] LABS: EOSINOPHILS # (AUTO) 0.2 K/uL (0.0-0.7); EOSINOPHILS % (AUTO) 4.2 % (0.0-7.0); HEMOGLOBIN 7.9 g/dL (12.5-16.3); LYMPHOCYTES # (AUTO) 0.9 K/uL (20.0-40.0); MEAN CORPUSCULAR VOLUME 68.4 fL (73.0-96.2); MONOCYTES # (AUTO) 0.6 K/uL (2.0-10.0); NEUTROPHILS # (AUTO) 3.6 K/uL (1.8-8.9); WHITE BLOOD COUNT (AUTO) 5.3 K/uL (3.6-10.2)
[2017-09-23 20:10] LABS: BASOPHILS % (AUTO) 0.6 % (0.0-2.0); HEMATOCRIT 24.9 % (36.7-47.1); LYMPHOCYTES % (AUTO) 16.7 % (20.5-51.5); MEAN CORPUSCULAR HEMOGLOBIN 21.8 uug (23.8-33.4); MEAN CORPUSCULAR HGB CONC 32 g/dL (32.5-36.3); MONOCYTES % (AUTO) 10.5 % (0.0-11.0); PLATELET COUNT (AUTO) 182 K/uL (152-348); RED BLOOD CELL COUNT(AUTO) 3.64 MIL/uL (4.06-5.63)
[2017-09-23 20:31] VITALS: BP 128/62
[2017-09-23] MEDS: ATORVASTATIN 20 MG TABLET PO SCH (20:58)
[2017-09-23] MEDS: TAMSULOSIN HCL 0.4 MG CAP.SR.24H PO SCH (20:58)
[2017-09-23 22:51] LABS: EOSINOPHILS % (MANUAL) 3 % (0-8); LYMPHOCYTES % (MANUAL) 21 % (20-40); MONOCYTES % (MANUAL) 9 % (2-10); NEUTROPHILS % (MANUAL) 67 % (42-75)
--- NOTE | 2017-09-24 | NUR ---
Pt. resting in bed, still alert, awake, oriented x 4, v/s stable, no fever. Pt. on 02 L/NC continuous with 02 sat. of 98-99 %. Pt. Leg bag for urinary drainage was changed to Regular F/C for drainage bag after irrigating 120 mls. of NS to the F/C pathway to the urinary tract to cleanse it and keep patent. Leg bag output with red serosanguineous and has 2 small, tiny sediments/clots that formed with the yellow urine with it. Primary Nurse let the Charge Nurse see the serosanguineous urine with the 2 small tiny blood clots with urine with it and it was thrown to the pt. restroom.
[2017-09-24 00:10] VITALS: BP 135/65
--- NOTE | 2017-09-24 02:00 | NUR ---
Pt. F/C drainage is now turning to light yellow urine with pinked tinged color urine now. F/C draining well from pinked tinged yellow urine to clear light yellow kathie now. Charge NURSE witnessed with the Primary Rn that the F/C output improved and minimal blood with the urine output now.
[2017-09-24 05:00] VITALS: BP 141/63
[2017-09-24] MEDS: PANTOPRAZOLE SODIUM 40 MG TABLET.DR PO SCH (07:02)
[2017-09-24] MEDS: LACTULOSE 20 G/30 ML LIQUID UDC PO SCH ×3 (07:03→18:00)
[2017-09-24] MEDS: hydrALAZINE HCL 25 MG TABLET PO SCH ×3 (07:03→21:01)
[2017-09-24 08:00] VITALS: BP 107/57
--- NOTE | 2017-09-24 08:00 | NUR ---
Received an 87 Y/O male pt. in bed resting, alert, awake, oriented x 4, with a family member @ the bedside. Pt. on N/C 3LPM. no S&S of SOB, denies chest pain and denies pain @ this time. Pt is urinating via FC with yellow urine. 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
[2017-09-24] MEDS: MIRALAX 17 GM POWD.PACK PO SCH (10:03)
[2017-09-24] MEDS: DOXAZOSIN 2 MG TABLET PO SCH (10:07)
[2017-09-24] MEDS: FINASTERIDE 5 MG TABLET PO SCH (10:08)
[2017-09-24] MEDS: COLCHICINE 0.6 MG TABLET PO SCH (10:08)
[2017-09-24] MEDS: METOPROLOL SUCCINATE XL 50 MG TAB.SR.24H PO SCH (10:08)
[2017-09-24] MEDS: FUROSEMIDE 20 MG TABLET PO SCH ×2 (10:08→17:13)
[2017-09-24] MEDS: DOCUSATE SODIUM 100 MG CAPSULE PO SCH ×2 (10:09→17:13)
[2017-09-24] MEDS: FOLIC ACID 1 MG TABLET PO SCH (10:09)
[2017-09-24] MEDS: ASPIRIN 81 MG TAB.CHEW PO SCH (10:09)
[2017-09-24] MEDS: FLUTICASONE PROP NASAL SPRAY 16 GM BOTTLE NS SCH ×2 (10:22→17:14)
[2017-09-24 10:40] LABS: BASOPHILS % (AUTO) 0.5 % (0.0-2.0); EOSINOPHILS # (AUTO) 0.2 K/uL (0.0-0.7); EOSINOPHILS % (AUTO) 3.3 % (0.0-7.0); HEMATOCRIT 25.5 % (36.7-47.1); HEMOGLOBIN 8.1 g/dL (12.5-16.3); LYMPHOCYTES # (AUTO) 0.6 K/uL (20.0-40.0); MEAN CORPUSCULAR HEMOGLOBIN 21.8 uug (23.8-33.4); MEAN CORPUSCULAR HGB CONC 32 g/dL (32.5-36.3); MEAN CORPUSCULAR VOLUME 68.9 fL (73.0-96.2); MONOCYTES # (AUTO) 0.4 K/uL (2.0-10.0); MONOCYTES % (AUTO) 8.1 % (0.0-11.0); NEUTROPHILS # (AUTO) 3.4 K/uL (1.8-8.9); NEUTROPHILS % (AUTO) 74.1 % (38.5-71.5); PLATELET COUNT (AUTO) 186 K/uL (152-348); WHITE BLOOD COUNT (AUTO) 4.6 K/uL (3.6-10.2)
[2017-09-24 10:53] LABS: ALANINE AMINOTRANSFERASE 24 U/L (16-63); ALKALINE PHOSPHATASE 46 U/L (50-136); ASPARTATE AMINOTRANSFERASE 10 U/L (15-37); BILIRUBIN,TOTAL 0.5 mg/dL (0.2-1.0); CARBON DIOXIDE 34 mmol/L (21-32); CHLORIDE 103 mmol/L (98-107); CREATININE 1.3 mg/dL (0.6-1.3); GLUCOSE 194 mg/dL (74-106); MAGNESIUM 1.7 mg/dL (1.8-2.4); PHOSPHOROUS 2.5 mg/dL (2.5-4.9); POTASSIUM 3.2 mmol/L (3.5-5.1); TOTAL PROTEIN, SERUM 5.5 g/dL (6.4-8.2); UREA NITROGEN, BLOOD 18 mg/dL (7-18)
[2017-09-24 10:58] LABS: EOSINOPHILS % (MANUAL) 3 % (0-8); LYMPHOCYTES % (MANUAL) 19 % (20-40); MONOCYTES % (MANUAL) 5 % (2-10); NEUTROPHILS % (MANUAL) 73 % (42-75)
[2017-09-24 15:51] VITALS: BP 124/61
--- NOTE | 2017-09-24 19:30 | NUR ---
PT ALERT AND ORIENTED IN BED. NO DISTRESS NOTED. COMPLIANT WITH NURSING CARE. LACEY INTACT AND PATENT. DRAINING YELLOW URINE. SAFETY MAINTAINED. CALL LIGHT WITHIN REACH. WILL CONTINUE TO MONITOR. BED ALARM ON. CONTACT ISOLATION MAINTAINED.
[2017-09-24 19:40] VITALS: BP 131/58
[2017-09-24] MEDS: TAMSULOSIN HCL 0.4 MG CAP.SR.24H PO SCH (20:04)
[2017-09-24] MEDS: ATORVASTATIN 20 MG TABLET PO SCH (20:04)
--- NOTE | 2017-09-24 21:40 | NUR ---
SPOKE WITH DR GARCIA IF ANY MEDICATION TO BE ORDERED FOR MRSA POSITIVE OF NARES, NO ORDERS GIVEN. CONTACT ISOLATION MAINTAINED.
[2017-09-25 05:30] VITALS: BP 137/53
[2017-09-25] MEDS: LACTULOSE 20 G/30 ML LIQUID UDC PO SCH ×3 (05:31→11:27)
[2017-09-25] MEDS: hydrALAZINE HCL 25 MG TABLET PO SCH ×3 (06:29→21:18)
[2017-09-25] MEDS: PANTOPRAZOLE SODIUM 40 MG TABLET.DR PO SCH (06:30)
--- NOTE | 2017-09-25 06:37 | NUR ---
PT CONCERNED ABOUT BLOOD SUGAR SAYING HE FELT IT WAS LOW. REQUESTING FOR SUGAR TO BE CHECKED, BS 133. DAILY WT 214.6 LBS. PT COMPLIANT WITH MEDICATION. CLEAN AND DRY. SAFETY MAINTAINED. CALL LIGHT WITHIN REACH. BED ALARM ON.
[2017-09-25 08:00] VITALS: BP 120/62
[2017-09-25] MEDS: FLUTICASONE PROP NASAL SPRAY 16 GM BOTTLE NS SCH ×2 (08:29→17:38)
[2017-09-25] MEDS: ASPIRIN 81 MG TAB.CHEW PO SCH (08:30)
[2017-09-25] MEDS: FUROSEMIDE 20 MG TABLET PO SCH ×2 (08:32→17:38)
[2017-09-25] MEDS: FOLIC ACID 1 MG TABLET PO SCH (08:32)
[2017-09-25] MEDS: DOXAZOSIN 2 MG TABLET PO SCH (08:32)
[2017-09-25] MEDS: DOCUSATE SODIUM 100 MG CAPSULE PO SCH ×2 (08:32→17:38)
[2017-09-25] MEDS: COLCHICINE 0.6 MG TABLET PO SCH (08:32)
[2017-09-25] MEDS: FINASTERIDE 5 MG TABLET PO SCH (08:33)
[2017-09-25] MEDS: METOPROLOL SUCCINATE XL 50 MG TAB.SR.24H PO SCH (08:33)
[2017-09-25] MEDS: MIRALAX 17 GM POWD.PACK PO SCH (08:34)
--- NOTE | 2017-09-25 11:58 | NUR ---
DOCTOR NACHO IS THE UNIT ROUNDING ON PATIENTS
[2017-09-25] MEDS ORDERED: POTASSIUM CHLORIDE 20 MEQ TAB.PRT.SR PO ONE ×2 (12:00→19:00)
--- NOTE | 2017-09-25 14:20 | NUR ---
endorsed patient to charge nurse
[2017-09-25 16:03] VITALS: BP 117/67
--- NOTE | 2017-09-25 20:20 | NUR ---
Lying in bed watching tv o2 @ 3 L n/c F/c draing yellow clear urine via gravity. Siderails up Call light within reach. Requesting RT to place him on cpap.
[2017-09-25 20:44] VITALS: BP 136/69
[2017-09-25] MEDS: ATORVASTATIN 20 MG TABLET PO SCH (21:17)
[2017-09-25] MEDS: TAMSULOSIN HCL 0.4 MG CAP.SR.24H PO SCH (21:17)
--- NOTE | 2017-09-25 21:20 | NUR ---
Pt placed on CPAP per MD order with the following settings of CPAP-11, FIO2-30%. No s/s of respiratory distress noted. Protecta gel placed under the mask. Alarms on and audible. DARIO balderas.
--- NOTE | 2017-09-26 01:00 | NUR ---
Per pt's request he is off CPAP and placed on Nasal Cannula. DARIO balderas.
--- NOTE | 2017-09-26 01:00 | NUR ---
Patient requesting to have CPAP removed. RT called. Safety maintained. CPAP removed, placed on 3LPM NC. Will continue to monitor. Call light within reach.
[2017-09-26 05:00] VITALS: BP 142/62
[2017-09-26] MEDS: hydrALAZINE HCL 25 MG TABLET PO SCH ×3 (06:03→21:02)
[2017-09-26] MEDS: PANTOPRAZOLE SODIUM 40 MG TABLET.DR PO SCH (06:41)
--- NOTE | 2017-09-26 07:03 | NUR ---
Lying in bed awake given am hydralazine 02 @ 2 L n/c Denies of any distress siderails up call light within reach.
[2017-09-26] MEDS: FUROSEMIDE 20 MG TABLET PO SCH ×2 (08:34→16:58)
[2017-09-26] MEDS: DOCUSATE SODIUM 100 MG CAPSULE PO SCH ×2 (08:34→16:58)
[2017-09-26] MEDS: MIRALAX 17 GM POWD.PACK PO SCH (08:34)
[2017-09-26] MEDS: COLCHICINE 0.6 MG TABLET PO SCH (08:34)
[2017-09-26] MEDS: ASPIRIN 81 MG TAB.CHEW PO SCH (08:34)
[2017-09-26] MEDS: FINASTERIDE 5 MG TABLET PO SCH (08:34)
[2017-09-26] MEDS: METOPROLOL SUCCINATE XL 50 MG TAB.SR.24H PO SCH (08:35)
[2017-09-26] MEDS: FLUTICASONE PROP NASAL SPRAY 16 GM BOTTLE NS SCH ×2 (08:35→16:58)
[2017-09-26] MEDS: DOXAZOSIN 2 MG TABLET PO SCH (08:35)
[2017-09-26] MEDS: FOLIC ACID 1 MG TABLET PO SCH (08:35)
--- NOTE | 2017-09-26 10:38 | NUR ---
Dr. John Farah gave an order for BMP today. Order carried out.
[2017-09-26 11:35] LABS: CARBON DIOXIDE 39 mmol/L (21-32); CHLORIDE 104 mmol/L (98-107); CREATININE 1.4 mg/dL (0.6-1.3); GLUCOSE 160 mg/dL (74-106); POTASSIUM 3.6 mmol/L (3.5-5.1); UREA NITROGEN, BLOOD 17 mg/dL (7-18)
--- NOTE | 2017-09-26 20:00 | NUR ---
Patient received on bed, AAO x4, able to make needs known. No sign of distress or SOB was noted. On O2 L/M through NC with sat 95%. Pain assessed, no sign of pain. Has Rios catheter draining well with yellow urine. Safety measures maintained. Bed alarm and brake on, side rails up x2. Call light and personal belongings within reach. Continue to monitor.
[2017-09-26 20:21] VITALS: BP 140/70
[2017-09-26] MEDS: ATORVASTATIN 20 MG TABLET PO SCH (20:37)
[2017-09-26] MEDS: TAMSULOSIN HCL 0.4 MG CAP.SR.24H PO SCH (20:37)
--- NOTE | 2017-09-26 21:35 | NUR ---
Pt placed on CPAP per MD order with settings of CPAP 11, FiO2 30%. No signs of respiratory distress noted at this time. Protecta gel placed under mask to protect skin. Pt states mask fits fine at this time. RN aware and notified pt is now on CPAP. Will continue to monitor pt throughout shift.
--- NOTE | 2017-09-27 03:20 | NUR ---
Per pt's request, pt taken off CPAP and placed on 2L nasal cannula. No respiratory distress noted at this time. RN aware and notified pt is off CPAP at this time.
[2017-09-27 04:07] VITALS: BP 128/62
--- NOTE | 2017-09-27 05:13 | NUR ---
End of the shift note Patient remained stable throughout the shift. No acute changes noted. Kept patient clean, dry and comfortable. Assessed for pain, no complain of pain. Medications were given as ordered. No sign of acute distress or SOB was noted. Rios catheter in placed draining yellow urine. patient has a good sleep until 0400 that requested for taking off the CPAP. Monitored vital signs. Safety precautions observed. Contact isolation was maintained. Hourly rounding done, call light and telephone within reach at all times, bilateral half side rails up and bed brake son for safety. Will endorse accordingly to incoming shift for continuity of care.
[2017-09-27] MEDS: hydrALAZINE HCL 25 MG TABLET PO SCH ×3 (06:34→21:08)
[2017-09-27] MEDS: PANTOPRAZOLE SODIUM 40 MG TABLET.DR PO SCH (06:34)
[2017-09-27] MEDS: METOPROLOL SUCCINATE XL 50 MG TAB.SR.24H PO SCH (08:45)
[2017-09-27] MEDS: FINASTERIDE 5 MG TABLET PO SCH (08:45)
[2017-09-27] MEDS: DOCUSATE SODIUM 100 MG CAPSULE PO SCH ×2 (08:45→17:21)
[2017-09-27] MEDS: COLCHICINE 0.6 MG TABLET PO SCH (08:45)
[2017-09-27] MEDS: DOXAZOSIN 2 MG TABLET PO SCH (08:46)
[2017-09-27] MEDS: FUROSEMIDE 20 MG TABLET PO SCH ×2 (08:46→17:21)
[2017-09-27] MEDS: ASPIRIN 81 MG TAB.CHEW PO SCH (08:47)
[2017-09-27] MEDS: MIRALAX 17 GM POWD.PACK PO SCH (08:47)
[2017-09-27] MEDS: FOLIC ACID 1 MG TABLET PO SCH (08:47)
[2017-09-27] MEDS: FLUTICASONE PROP NASAL SPRAY 16 GM BOTTLE NS SCH ×2 (08:47→17:23)
[2017-09-27] MEDS ORDERED: MAGNESIUM CITRATE 296 ML BOTTLE PO ONE (13:45)
[2017-09-27 15:51] VITALS: BP 138/73
--- NOTE | 2017-09-27 20:10 | NUR ---
Patient received on bed, AAO x4, able to make needs known. No sign of distress or SOB was noted. On O2 L/M through NC with sat 97%. Pain assessed, no sign of pain. Rios catheter in placed draining well with yellow urine. Safety measures maintained. Bed alarm and brake on, side rails up x2. Call light and personal belongings within reach. Continue to monitor.
[2017-09-27 20:22] VITALS: BP 129/65
[2017-09-27] MEDS: TAMSULOSIN HCL 0.4 MG CAP.SR.24H PO SCH (20:51)
[2017-09-27] MEDS: ATORVASTATIN 20 MG TABLET PO SCH (20:51)
--- NOTE | 2017-09-28 01:05 | NUR ---
At 0100 am per patient request CPAP machine was turned off and patient put on the O2 via nasal canula. RT was aware. Continue to monitor.
--- NOTE | 2017-09-28 04:00 | NUR ---
Pt placed back on BiPAP. According to his RN, he took off mask around 1AM by himself. No calls to RT. Pt asked to be placed back on BiPAP when I came to check machine. Charge nurse Toni notified.
[2017-09-28 05:24] VITALS: BP 117/57
--- NOTE | 2017-09-28 05:31 | NUR ---
End of the shift note Patient remained stable throughout the shift. No acute changes noted. Kept patient clean, dry and comfortable. Assessed for pain, no complain of pain. Medications were given as ordered. No sign of acute distress or SOB was noted. Rios catheter in placed draining yellow urine. patient has a good sleep throughout the night except at 0100 that requested for taking off the CPAP. Monitored vital signs. Safety precautions observed. Contact isolation was maintained. Hourly rounding done, call light and telephone within reach at all times, bilateral half side rails up and bed brake son for safety. Will endorse accordingly to incoming shift for continuity of care.
[2017-09-28] MEDS: PANTOPRAZOLE SODIUM 40 MG TABLET.DR PO SCH (06:35)
[2017-09-28] MEDS: hydrALAZINE HCL 25 MG TABLET PO SCH ×3 (06:35→21:05)
[2017-09-28 07:41] LABS: BASOPHILS % (AUTO) 0.8 % (0.0-2.0); EOSINOPHILS # (AUTO) 0.2 K/uL (0.0-0.7); EOSINOPHILS % (AUTO) 3.5 % (0.0-7.0); HEMATOCRIT 26.1 % (36.7-47.1); HEMOGLOBIN 8.3 g/dL (12.5-16.3); LYMPHOCYTES # (AUTO) 1.1 K/uL (20.0-40.0); LYMPHOCYTES % (AUTO) 22.2 % (20.5-51.5); MEAN CORPUSCULAR HEMOGLOBIN 21.4 uug (23.8-33.4); MEAN CORPUSCULAR HGB CONC 32 g/dL (32.5-36.3); MEAN CORPUSCULAR VOLUME 67.5 fL (73.0-96.2); MONOCYTES # (AUTO) 0.3 K/uL (2.0-10.0); MONOCYTES % (AUTO) 6.1 % (0.0-11.0); NEUTROPHILS # (AUTO) 3.5 K/uL (1.8-8.9); NEUTROPHILS % (AUTO) 67.4 % (38.5-71.5); PLATELET COUNT (AUTO) 239 K/uL (152-348); RED BLOOD CELL COUNT(AUTO) 3.87 MIL/uL (4.06-5.63); WHITE BLOOD COUNT (AUTO) 5.2 K/uL (3.6-10.2)
[2017-09-28 07:50] LABS: ALANINE AMINOTRANSFERASE 15 U/L (16-63); ALKALINE PHOSPHATASE 48 U/L (50-136); ASPARTATE AMINOTRANSFERASE 9 U/L (15-37); BILIRUBIN,TOTAL 0.5 mg/dL (0.2-1.0); CARBON DIOXIDE 39 mmol/L (21-32); CHLORIDE 105 mmol/L (98-107); CREATININE 1.2 mg/dL (0.6-1.3); GLUCOSE 118 mg/dL (74-106); MAGNESIUM 2.1 mg/dL (1.8-2.4); POTASSIUM 3.2 mmol/L (3.5-5.1); TOTAL PROTEIN, SERUM 5.5 g/dL (6.4-8.2); UREA NITROGEN, BLOOD 16 mg/dL (7-18)
[2017-09-28 08:28] LABS: EOSINOPHILS % (MANUAL) 3 % (0-8); LYMPHOCYTES % (MANUAL) 22 % (20-40); MONOCYTES % (MANUAL) 7 % (2-10); NEUTROPHILS % (MANUAL) 68 % (42-75)
[2017-09-28] MEDS: FOLIC ACID 1 MG TABLET PO SCH (08:49)
[2017-09-28] MEDS: DOCUSATE SODIUM 100 MG CAPSULE PO SCH ×2 (08:49→16:49)
[2017-09-28] MEDS: ASPIRIN 81 MG TAB.CHEW PO SCH (08:49)
[2017-09-28] MEDS: COLCHICINE 0.6 MG TABLET PO SCH (08:50)
[2017-09-28] MEDS: FINASTERIDE 5 MG TABLET PO SCH (08:50)
[2017-09-28] MEDS: DOXAZOSIN 2 MG TABLET PO SCH (08:50)
[2017-09-28] MEDS: METOPROLOL SUCCINATE XL 50 MG TAB.SR.24H PO SCH (08:50)
[2017-09-28] MEDS: FUROSEMIDE 20 MG TABLET PO SCH ×2 (08:50→16:49)
[2017-09-28] MEDS: FLUTICASONE PROP NASAL SPRAY 16 GM BOTTLE NS SCH ×2 (08:51→16:49)
[2017-09-28] MEDS: MIRALAX 17 GM POWD.PACK PO SCH (08:51)
[2017-09-28 09:39] VITALS: BP 127/59
[2017-09-28] MEDS ORDERED: METFORMIN HCL 500 MG TABLET PO SCH (10:30)
[2017-09-28] MEDS ORDERED: POTASSIUM CHLORIDE 20 MEQ TAB.PRT.SR PO ONE (11:30)
--- NOTE | 2017-09-28 12:37 | NUR ---
Patient potassium 3.2. MD baker ordered Potassium 40meq PO-given.
[2017-09-28 15:49] VITALS: BP 98/54
--- NOTE | 2017-09-28 20:15 | NUR ---
Pt awake and laying in semi fowlers position in bed . Pt has no signs of distress and no c/o pain . Pt is on 2 L oxygen , no shortness of breath . VSS
[2017-09-28 20:37] VITALS: BP 132/70
[2017-09-28] MEDS: ATORVASTATIN 20 MG TABLET PO SCH (21:05)
[2017-09-28] MEDS: TAMSULOSIN HCL 0.4 MG CAP.SR.24H PO SCH (21:06)
[2017-09-29 05:00] VITALS: BP 131/63
[2017-09-29] MEDS: hydrALAZINE HCL 25 MG TABLET PO SCH ×3 (06:48→21:17)
[2017-09-29] MEDS: PANTOPRAZOLE SODIUM 40 MG TABLET.DR PO SCH (06:48)
--- NOTE | 2017-09-29 07:12 | NUR ---
Pt slept well during the shift , slept with the CPAP device on . Pt is in no distress and has no c/o pain . VSS and pt is A & O x 4 . pt has Rios catheter which has good output urine .
[2017-09-29 08:00] VITALS: BP 133/65
[2017-09-29] MEDS: DOXAZOSIN 2 MG TABLET PO SCH (08:39)
[2017-09-29] MEDS: DOCUSATE SODIUM 100 MG CAPSULE PO SCH ×2 (08:39→17:30)
[2017-09-29] MEDS: FOLIC ACID 1 MG TABLET PO SCH (08:39)
[2017-09-29] MEDS: COLCHICINE 0.6 MG TABLET PO SCH (08:39)
[2017-09-29] MEDS: FUROSEMIDE 20 MG TABLET PO SCH ×2 (08:40→17:30)
[2017-09-29] MEDS: POTASSIUM CHLORIDE 10 MEQ TAB.PRT.SR PO SCH (08:40)
[2017-09-29] MEDS: MIRALAX 17 GM POWD.PACK PO SCH (08:40)
[2017-09-29] MEDS: METOPROLOL SUCCINATE XL 50 MG TAB.SR.24H PO SCH (08:41)
[2017-09-29] MEDS: FINASTERIDE 5 MG TABLET PO SCH (08:41)
[2017-09-29] MEDS: ASPIRIN 81 MG TAB.CHEW PO SCH (08:41)
[2017-09-29] MEDS: GLIMEPIRIDE 2 MG TABLET PO SCH (08:41)
[2017-09-29] MEDS: FLUTICASONE PROP NASAL SPRAY 16 GM BOTTLE NS SCH ×2 (08:42→17:30)
[2017-09-29] MEDS ORDERED: POTASSIUM CHLORIDE 10 MEQ TAB.PRT.SR PO SCH (09:00)
[2017-09-29 16:00] VITALS: BP 118/51
--- NOTE | 2017-09-29 18:20 | NUR ---
Nurse Notes; patient alert and oriented,able to make needs known remained stable throughout the shift with no acute changes noted. Assessed for pain, denies any pain or discomforts. No SOB or distress, on Oxygen via NC. Rios catheter patent and draining well with a yellowish colored urine, no sediments noted. Safety precautions observed, hourly rounding done, call light and telephone within reach at all times. Will endorse accordingly to incoming shift for continuity of care.
[2017-09-29 19:53] VITALS: BP 125/59
[2017-09-29] MEDS: ATORVASTATIN 20 MG TABLET PO SCH (20:47)
[2017-09-29] MEDS: TAMSULOSIN HCL 0.4 MG CAP.SR.24H PO SCH (20:47)
--- NOTE | 2017-09-29 21:42 | NUR ---
Per pt request, pt placed on CPAP at this time settings CPAP 11, FIO2-30%. No resp. distress noted at this time. BVM at bedside. Pt to be monitored throughout the rest of the shift. BIPAP Vision alarm parameters have been checked and remain audible.
--- NOTE | 2017-09-29 22:25 | NUR ---
Received pt resting in bed. AAO x3. Dr. Whaley seen pt. Pt on 2L O2 via NC. No acute distress noted. No c/o pain or discomfort. Rios catheter in placed, draining well. CPAP in placed at this time. Safety measures maintained. Call light and personal belongings within reach. Will continue to monitor.
[2017-09-30 05:41] VITALS: BP 140/71
[2017-09-30] MEDS: hydrALAZINE HCL 25 MG TABLET PO SCH ×3 (06:24→21:15)
[2017-09-30] MEDS: PANTOPRAZOLE SODIUM 40 MG TABLET.DR PO SCH (06:34)
[2017-09-30 08:00] VITALS: BP 132/70
[2017-09-30] MEDS: GLIMEPIRIDE 2 MG TABLET PO SCH (08:32)
[2017-09-30] MEDS: POTASSIUM CHLORIDE 10 MEQ TAB.PRT.SR PO SCH (08:33)
[2017-09-30] MEDS: FLUTICASONE PROP NASAL SPRAY 16 GM BOTTLE NS SCH ×2 (08:33→16:26)
[2017-09-30] MEDS: DOXAZOSIN 2 MG TABLET PO SCH (08:33)
[2017-09-30] MEDS: FOLIC ACID 1 MG TABLET PO SCH (08:33)
[2017-09-30] MEDS: FUROSEMIDE 20 MG TABLET PO SCH ×2 (08:34→16:26)
[2017-09-30] MEDS: FINASTERIDE 5 MG TABLET PO SCH (08:34)
[2017-09-30] MEDS: COLCHICINE 0.6 MG TABLET PO SCH (08:34)
[2017-09-30] MEDS: METOPROLOL SUCCINATE XL 50 MG TAB.SR.24H PO SCH (08:34)
[2017-09-30] MEDS: ASPIRIN 81 MG TAB.CHEW PO SCH (08:34)
[2017-09-30] MEDS: DOCUSATE SODIUM 100 MG CAPSULE PO SCH ×2 (08:40→16:26)
[2017-09-30] MEDS: MIRALAX 17 GM POWD.PACK PO SCH (08:40)
--- NOTE | 2017-09-30 09:00 | NUR ---
Received patient sitting at chair. Alert x4. Denies any pain. With intact, patent Rios catheter draining to dark yellow colored urine, no hematuria noted. On room air, no SOB or chest pains noted.
--- NOTE | 2017-09-30 09:30 | NUR ---
Refused Miralax and Colace, patient said he does not need it now. Discussed risks and benefits but patient still refused.
--- NOTE | 2017-09-30 14:23 | NUR ---
INTERDISCIPLINARY TEAM CONFERENCE
[2017-09-30 14:47] VITALS: BP 116/59
[2017-09-30 20:28] VITALS: BP 117/70
[2017-09-30] MEDS: ATORVASTATIN 20 MG TABLET PO SCH (20:45)
[2017-09-30] MEDS: TAMSULOSIN HCL 0.4 MG CAP.SR.24H PO SCH (20:45)
--- NOTE | 2017-09-30 21:45 | NUR ---
Received pt resting comfortably in bed. AAO x4. On 2L O2 via NC, tolerating well. No acute distress noted. No c/o pain or discomfort at this time. Xiao catheter, patent and intact, draining well with clear yellow colored urine. No hematuria noted. Dr. Hunter seen pt upon rounding. Pt to be discharged tomorrow. As per MD, pt will be discharged with xiao catheter. Discharge prescriptions signed. Provided pt education regarding xiao catheter care, pt verbalized understanding and stated that he understands that he will need xiao for now since he is going to have a surgery soon for his prostate problem. Safety measures and contact isolation maintained. Call light and personal belongings within reach. Will continue to monitor.
--- NOTE | 2017-09-30 22:01 | NUR ---
Per pt request, pt placed on CPAP at this time for sleep; the settings placed on are as follows: CPAP 11 and FIO2-30%. No resp. distress noted at this time. BVM at bedside. Pt to be monitored throughout the rest of the shift. BIPAP Vision alarm parameters have been checked and remain audible.
--- NOTE | 2017-10-01 05:30 | NUR ---
Pt removed from CPAP at this time (per pt request) and placed back on 2LNC. No resp. distress noted at this time. Pt appeared to have tolerated CPAP well throughout the night.
[2017-10-01 06:00] VITALS: BP 134/65
[2017-10-01] MEDS: hydrALAZINE HCL 25 MG TABLET PO SCH ×2 (06:33→13:53)
[2017-10-01] MEDS: PANTOPRAZOLE SODIUM 40 MG TABLET.DR PO SCH (06:33)
[2017-10-01 08:00] VITALS: BP 120/54
[2017-10-01] MEDS ORDERED: POTASSIUM CHLORIDE 10 MEQ TAB.PRT.SR PO SCH (09:00)
[2017-10-01] MEDS ORDERED: FUROSEMIDE 20 MG TABLET PO SCH (09:00)
[2017-10-01] MEDS: GLIMEPIRIDE 2 MG TABLET PO SCH (09:14)
[2017-10-01] MEDS: FLUTICASONE PROP NASAL SPRAY 16 GM BOTTLE NS SCH (09:14)
[2017-10-01] MEDS: METOPROLOL SUCCINATE XL 50 MG TAB.SR.24H PO SCH (09:15)
[2017-10-01] MEDS: DOCUSATE SODIUM 100 MG CAPSULE PO SCH (09:15)
[2017-10-01] MEDS: FINASTERIDE 5 MG TABLET PO SCH (09:15)
[2017-10-01] MEDS: MIRALAX 17 GM POWD.PACK PO SCH (09:15)
[2017-10-01] MEDS: COLCHICINE 0.6 MG TABLET PO SCH (09:15)
[2017-10-01] MEDS: FOLIC ACID 1 MG TABLET PO SCH (09:15)
[2017-10-01] MEDS: ASPIRIN 81 MG TAB.CHEW PO SCH (09:16)
[2017-10-01] MEDS: DOXAZOSIN 2 MG TABLET PO SCH (09:16)
--- NOTE | 2017-10-01 09:30 | NUR ---
Received patient awake, alert x4. On room air, sating well. NO SOB, chest pains noted. Denies any pain. Tolerated AM medications. Not in any form of distress. For possible discharge today.
[2017-10-01 13:53] VITALS: BP 101/50
--- NOTE | 2017-10-01 15:41 | NUR ---
Discharge to home. Patient opted for private transport. Explained patient that ambulance will be late and would be arriving at 3:50-4:00 PM per dispatch. Discussed risks for private transport and benefits of ambulance service. Patient was very persistent and would want to go home as soon as possible. Routine discharge care done. Discharge order obtained from Dr. Whaley. Instructed to take medications as prescribed. Instructed follow up with PCP on 10/04/17 at 11:15 am. Instructed to ambulate with assistive device. Instructed about Rios catheter care. Discharge to home with Rios catheter, stable, and not in any form of distress. accompanied by friend via private transport.
[2017-10-19] MEDS ORDERED: CYANOCOBALAMIN 1000 MCG/ML VIAL IM SCH (09:00)
== END 2017-10-01 14:40 | disposition home health service (06) | DRG 947 ==
PROVIDERS: ADMIT Physical Medicine & Rehabilitation Pain Medicine; ATTEND Physical Medicine & Rehabilitation Pain Medicine
DX: R53.81 Other malaise (principal); G93.40 Encephalopathy, unspecified; I50.33 Acute on chronic diastolic (congestive) heart failure; N17.0 Acute kidney failure with tubular necrosis; N13.8 Other obstructive and reflux uropathy; I13.0 Hypertensive heart and chronic kidney disease with heart failure and stage 1 through stage 4 chronic kidney disease, or unspecified chronic kidney disease; N40.1 Benign prostatic hyperplasia with lower urinary tract symptoms; R33.8 Other retention of urine; E11.22 Type 2 diabetes mellitus with diabetic chronic kidney disease; I48.0 Paroxysmal atrial fibrillation; I50.9 Heart failure, unspecified; M19.90 Unspecified osteoarthritis, unspecified site; N18.9 Chronic kidney disease, unspecified; Z68.37 Body mass index [BMI] 37.0-37.9, adult; E66.01 Morbid (severe) obesity due to excess calories; D56.3 Thalassemia minor; G47.33 Obstructive sleep apnea (adult) (pediatric); K59.00 Constipation, unspecified; Z87.440 Personal history of urinary (tract) infections; Z85.038 Personal history of other malignant neoplasm of large intestine; Z87.01 Personal history of pneumonia (recurrent); Z91.010 Allergy to peanuts; Z95.0 Presence of cardiac pacemaker
CPT/HCPCS: 36415; 71046; 74018; 83735; 84100; 85025; 92526; 92610; 93005; 94640; 94660; 97110; 97112; 97116; 97530; 97535; A4217; A4663; J3535

== ENCOUNTER 2017-12-04 10:20 | Emergency (ER) | payer MEDICARE, MEDICAID ==
[~2017-12-04] VITALS: Ht 170.2 cm; Wt 108.9 kg
[2017-12-04] MEDS ORDERED: ONDANSETRON IV *ER 4 MG/2 ML VIAL IV ONE (10:45)
[2017-12-04] MEDS ORDERED: MORPHINE SULFATE 4 MG/1 ML DISP.SYRIN IV ONE ×3 (10:45→14:30)
[2017-12-04] MEDS ORDERED: MORPHINE SULFATE 4 MG/1 ML DISP.SYRIN ONE ×3 (10:48→14:27)
[2017-12-04] MEDS ORDERED: ONDANSETRON 4 MG/2 ML VIAL ONE (10:48)
--- NOTE | 2017-12-04 10:52 | NUR ---
DOCTOR INFORMED ME TO USE BIGGER NIUEAN LACEY INSERTION FOR IRRIGATION AND CLOTS.
[2017-12-04 10:53] LABS: BASOPHILS # (AUTO) 0.1 K/uL (0.0-8.0); BASOPHILS % (AUTO) 0.9 % (0.0-2.0); EOSINOPHILS # (AUTO) 0.1 K/uL (0.0-0.7); EOSINOPHILS % (AUTO) 1.3 % (0.0-7.0); HEMATOCRIT 26.5 % (36.7-47.1); HEMOGLOBIN 8.6 g/dL (12.5-16.3); LYMPHOCYTES # (AUTO) 0.7 K/uL (20.0-40.0); LYMPHOCYTES % (AUTO) 10.2 % (20.5-51.5); MEAN CORPUSCULAR HEMOGLOBIN 21.5 uug (23.8-33.4); MEAN CORPUSCULAR HGB CONC 32 g/dL (32.5-36.3); MEAN CORPUSCULAR VOLUME 66.5 fL (73.0-96.2); MONOCYTES # (AUTO) 0.3 K/uL (2.0-10.0); MONOCYTES % (AUTO) 4.8 % (0.0-11.0); NEUTROPHILS # (AUTO) 5.6 K/uL (1.8-8.9); NEUTROPHILS % (AUTO) 82.8 % (38.5-71.5); PLATELET COUNT (AUTO) 217 K/uL (152-348); RED BLOOD CELL COUNT(AUTO) 3.99 MIL/uL (4.06-5.63); WHITE BLOOD COUNT (AUTO) 6.7 K/uL (3.6-10.2)
[2017-12-04 10:59] LABS: CARBON DIOXIDE 32 mmol/L (21-32); CHLORIDE 104 mmol/L (98-107); CREATININE 1.7 mg/dL (0.6-1.3); GLUCOSE 254 mg/dL (74-106); POTASSIUM 3.3 mmol/L (3.5-5.1); UREA NITROGEN, BLOOD 20 mg/dL (7-18)
[2017-12-04 11:03] LABS: EOSINOPHILS % (MANUAL) 1 % (0-8); LYMPHOCYTES % (MANUAL) 11 % (20-40); MONOCYTES % (MANUAL) 5 % (2-10); NEUTROPHILS % (MANUAL) 83 % (42-75)
[2017-12-04 11:04] LABS: ALANINE AMINOTRANSFERASE 18 U/L (16-63); ALKALINE PHOSPHATASE 70 U/L (50-136); ASPARTATE AMINOTRANSFERASE 8 U/L (15-37); BILIRUBIN,DIRECT 0.2 mg/dL (0.0-0.2); BILIRUBIN,TOTAL 0.6 mg/dL (0.2-1.0); TOTAL PROTEIN, SERUM 6.7 g/dL (6.4-8.2)
[2017-12-04] MEDS ORDERED: LIDOCAINE 2% (UROJET) 10 ML JELLY MM ONE (11:16)
--- NOTE | 2017-12-04 12:02 | NUR ---
PATIENT CHOOSES NOT TO RECONCILE MEDICATIONS AT THIS TIME - HE STATES HE IS STILL NOT FEELING GOOD.
--- NOTE | 2017-12-04 12:11 | NUR ---
22FR. CUADET USED. MANUAL IRRIGATION WITH 2L OF SALINE USED DOCTOR AT BEDSIDE WITH MULTIPLE BLOOD CLOTS. MANUAL IRRIGATION WITH UNSUCCESFUL GRAVITY FLOW, CONTINUES MANUAL IRRIGATION NEEDED TO OBTAIN PINK TINGED WITH RESIDUAL SMALL CLOTS.
--- NOTE | 2017-12-04 12:14 | NUR ---
PATIENT UROLOGIST FROM [facility] HAS BEEN CONTACTED AND TRANSFER PROCESS IS IN THE WORKS FOR POSSIBLE TRANSFER ADMIT TO [facility]IC[facility] FOR THIS PATIENT TRANSFER.
--- NOTE | 2017-12-04 12:16 | NUR ---
SOME PAIN RELIEVED FROM MANUAL IRRIGATION.
--- NOTE | 2017-12-04 12:25 | NUR ---
DOCTOR ROGE [phone] IS COVERING DOCTOR FOR UROLOGIST DOCTOR CHEN. HE WILL BE CALLING TRANSFER OFFICE AT [facility] TO OBTAIN AN ADMITTING DOCTOR PER REQUEST OF [facility] ADMITTING/ TRANSFERRING SERVICES.
--- NOTE | 2017-12-04 12:57 | NUR ---
BLADDER SCAN 350 ML RESULT. SCANT AMOUNT OF GRAVITY FLOW OF BLOODY URINE IN LACEY.
--- NOTE | 2017-12-04 12:58 | NUR ---
[facility] CALLING FOR DOCTOR JONES.
--- NOTE | 2017-12-04 13:10 | NUR ---
DOCTOR HERNANDEZ WILL BE THE ACCEPTING DOCTOR FROM [facility].
--- NOTE | 2017-12-04 13:49 | NUR ---
[facility] CALLED WILL BE GOING TO [address] [facility] BED [id number]. WILL BE AVAILABLE IN 30MINUTES, NEED TO ARRANGE FOR TRANSPORT, CONSENT FOR TRANSFER, AND A COPY OF CHART.
--- NOTE | 2017-12-04 13:54 | NUR ---
NEED TO CALL BACK [facility] [phone]
--- NOTE | 2017-12-04 14:01 | NUR ---
CALLED BACK FOR ETA IS [phone].
--- NOTE | 2017-12-04 14:06 | NUR ---
Vibha, the [facility] dispatcher gave BLS ambulance [phone] with trip#[id number]. Patient notified. [facility] transfer Center staff notified. notified. DARIO Bravo notified.
--- NOTE | 2017-12-04 15:15 | NUR ---
WAITING FOR ABULANCE TO RECREATION ASSISTANT. CALL AND SPOKE TO NHAN AT TRANSFER CENTER TO GIVE REPORT.
--- NOTE | 2017-12-04 15:30 | NUR ---
REPORT GIVEN TO [phone]. CALLED REPORT AT [facility] TO EDDA BISHOP ACCEPTING NURSE, ROOM CHANGED TO [facility].
== END 2017-12-04 15:40 | disposition short-term general hospital (02) ==
LOC: ER 10:20
DX: R33.9 Retention of urine, unspecified (principal); R31.9 Hematuria, unspecified; I11.0 Hypertensive heart disease with heart failure; I50.9 Heart failure, unspecified; E11.9 Type 2 diabetes mellitus without complications; Z95.0 Presence of cardiac pacemaker; Z91.010 Allergy to peanuts
CPT/HCPCS: 36415; 80048; 80076; 85025; 85730; 96374; 96375; 96376; 99285; J2270 ×3; J2405; A4217; A4663